=== PATIENT | female | born 1975 | race American Indian/Alaskan Native ===

== ENCOUNTER 2020-04-26 10:52 | Emergency (ER) | payer BC ==
[2020-04-26] MEDS ORDERED: MORPHINE 4 MG/1 ML INJ IV ONE (11:08)
[2020-04-26] MEDS ORDERED: ONDANSETRON 4 MG/2 ML INJ IV ONE (11:08)
[2020-04-26] MEDS ORDERED: SODIUM CHLORIDE 0.9% 1000 ML 1,000 ML IV ONE (11:08)
--- NOTE | 2020-04-26 11:13 | Emergency Department Report ---
ED Abdominal Pain HPI - General Chief Complaint: Abdominal Pain Stated Complaint: ABD PAIN/VOMITING Time Seen by Provider: 04/26/20 11:03 Source: patient Mode of arrival: Ambulatory Limitations: No Limitations - History of Present Illness Initial Comments: pt is a 45 yo female who presents to the ED with c/o LLQ abd pain that began a couple of days ago and worsened this morning while she was on her way to work. she states she has associated N/V. she states she has had approximately 3 episodes of vomiting today. she states she feels constipated, she states she did an enema this morning and was able to have a BM but still has the sensation of needing to have a BM. she denies any diarrhea, dysuria, odor to urine or dark urine, abnormal vaginal discharge, itching or burning, hematochezia, hematemesis, melana. PMHx DM, HTN, HLD, anemia. no allergies to meds. LNMP 2nd week of April 2020. she is sexually active but denies any concerns for STDs. - Related Data Previous Rx's Medication Instructions Recorded Last Taken Type Ciprofloxacin HCl [Cipro] 500 mg PO Q12H #14 tab 08/13/14 Unknown Rx HYDROcodone/APAP 10-325 [[place] 1 each PO Q4-6H PRN #20 tablet 08/13/14 Unknown Rx 10/325] Ondansetron [Zofran Odt] 4 mg SL Q6H PRN #8 tab.rapdis 08/13/14 Unknown Rx HYDROcodone/APAP 5-325 [[place] 1 each PO Q6HR PRN #10 tablet 04/26/20 Unknown Rx 5/325] Naproxen [EC-Naprosyn] 500 mg PO BID PRN #20 tablet. 04/26/20 Unknown Rx Ondansetron [Zofran Odt] 4 mg PO Q8HR PRN #7 tab.rapdis 04/26/20 Unknown Rx Tamsulosin [Flomax] 0.4 mg PO QDAY #7 cap 04/26/20 Unknown Rx Allergies Allergy/AdvReac Type Severity Reaction Status Date / Time No Known Allergies Allergy Verified 04/26/20 10:58 ED Review of Systems ROS: Stated complaint: ABD PAIN/VOMITING Other details as noted in HPI Comment: All other systems reviewed and negative ED Past Medical Hx - Past Medical History Hx Diabetes: Yes - Surgical History Additional Surgical History: IUD implant - Social History Smoking Status: Never Smoker Substance Use Type: None - Medications Home Medications: Home Medications Medication Instructions Recorded Confirmed Last Taken Type Ciprofloxacin HCl [Cipro] 500 mg PO Q12H #14 tab 08/13/14 Unknown Rx HYDROcodone/APAP 10-325 [[place] 1 each PO Q4-6H PRN #20 tablet 08/13/14 Unknown Rx 10/325] Ondansetron [Zofran Odt] 4 mg SL Q6H PRN #8 tab.rapdis 08/13/14 Unknown Rx HYDROcodone/APAP 5-325 [[place] 1 each PO Q6HR PRN #10 tablet 04/26/20 Unknown Rx 5/325] Naproxen [EC-Naprosyn] 500 mg PO BID PRN #20 tablet.dr 04/26/20 Unknown Rx Ondansetron [Zofran Odt] 4 mg PO Q8HR PRN #7 tab.rapdis 04/26/20 Unknown Rx Tamsulosin [Flomax] 0.4 mg PO QDAY #7 cap 04/26/20 Unknown Rx ED Physical Exam - General Limitations: No Limitations General appearance: alert, in no apparent distress - Head Head exam: Present: atraumatic, normocephalic - Eye Eye exam: Present: normal appearance - ENT ENT exam: Present: mucous membranes moist - Respiratory Respiratory exam: Present: normal lung sounds bilaterally. Absent: respiratory distress, wheezes, rales, rhonchi, stridor, chest wall tenderness, accessory muscle use, decreased breath sounds, prolonged expiratory - Cardiovascular Cardiovascular Exam: Present: regular rate, normal rhythm, normal heart sounds. Absent: systolic murmur, diastolic murmur, rubs, gallop - GI/Abdominal GI/Abdominal exam: Present: soft, tenderness (LLQ), normal bowel sounds. Absent: distended, guarding, rebound, rigid - Neurological Exam Neurological exam: Present: alert, oriented X3 - Psychiatric Psychiatric exam: Present: normal affect, normal mood - Skin Skin exam: Present: warm, dry, intact ED Course Vital Signs 04/26/20 04/26/20 04/26/20 10:58 12:00 12:05 Temperature 98.6 F Pulse Rate 113 H 107 H Respiratory 20 13 16 Rate Blood Pressure 141/99 148/105 Blood Pressure [Right] O2 Sat by Pulse 96 100 100 Oximetry 04/26/20 04/26/20 04/26/20 12:10 12:16 12:46 Temperature Pulse Rate 96 H 102 H 107 H Respiratory 12 14 18 Rate Blood Pressure 155/106 116/74 Blood Pressure 148/105 [Right] O2 Sat by Pulse 100 100 Oximetry 04/26/20 04/26/20 13:00 14:16 Temperature Pulse Rate 105 H 99 H Respiratory 17 21 Rate Blood Pressure 116/74 129/95 Blood Pressure [Right] O2 Sat by Pulse 100 99 Oximetry ED Medical Decision Making - Lab Data Result diagrams: 04/26/20 11:16 04/26/20 11:16 Lab Results 04/26/20 04/26/20 04/26/20 Range/Units 11:16 11:16 11:16 WBC 10.6 (4.5-11.0) K/mm3 RBC 4.99 (3.65-5.03) M/mm3 Hgb 11.1 (10.1-14.3) gm/dl Hct 35.3 (30.3-42.9) % MCV 71 L (79-97) fl MCH 22 L (28-32) pg MCHC 32 (30-34) % RDW 15.4 H (13.2-15.2) % Plt Count 230 (140-440) K/mm3 Lymph % (Auto) 13.4 (13.4-35.0) % [place] % (Auto) 7.9 H (0.0-7.3) % Eos % (Auto) 0.8 (0.0-4.3) % Baso % (Auto) 0.6 (0.0-1.8) % Lymph # (Auto) 1.4 (1.2-5.4) K/mm3 [place] # (Auto) 0.8 (0.0-0.8) K/mm3 Eos # (Auto) 0.1 (0.0-0.4) K/mm3 Baso # (Auto) 0.1 (0.0-0.1) K/mm3 Seg Neutrophils % 77.3 H (40.0-70.0) % Seg Neutrophils # 8.2 H (1.8-7.7) K/mm3 Sodium 138 (137-145) mmol/L Potassium 4.0 (3.6-5.0) mmol/L Chloride 99.5 (98-107) mmol/L Carbon Dioxide 29 (22-30) mmol/L Anion Gap 14 mmol/L BUN 10 (7-17) mg/dL Creatinine 0.8 (0.6-1.2) mg/dL Estimated GFR > 60 ml/min BUN/Creatinine Ratio 13 % Glucose 302 H (65-100) mg/dL Calcium 9.3 (8.4-10.2) mg/dL Total Bilirubin 0.60 (0.1-1.2) mg/dL AST 15 (5-40) units/L ALT 13 (7-56) units/L Alkaline Phosphatase 99 (35-129) units/L Total Protein 8.2 (6.3-8.2) g/dL Albumin 4.0 (3.9-5) g/dL Albumin/Globulin Ratio 1.0 % Lipase 37 (13-60) units/L HCG, Qual Negative (Negative) Urine Color (Yellow) Urine Turbidity (Clear) Urine pH (5.0-7.0) Ur Specific [place] (1.003-1.030) Urine Protein (Negative) mg/dL Urine Glucose (UA) (Negative) mg/dL Urine Ketones (Negative) mg/dL Urine Blood (Negative) Urine Nitrite (Negative) Urine Bilirubin (Negative) Urine Urobilinogen (<2.0) mg/dL Ur Leukocyte Esterase (Negative) Urine WBC (Auto) (0.0-6.0) /HPF Urine RBC (Auto) (0.0-6.0) /HPF U Epithel Cells (Auto) (0-13.0) /HPF Urine Bacteria (Auto) (Negative) /HPF Urine Mucus /HPF 04/26/20 Range/Units 13:35 WBC (4.5-11.0) K/mm3 RBC (3.65-5.03) M/mm3 Hgb (10.1-14.3) gm/dl Hct (30.3-42.9) % MCV (79-97) fl MCH (28-32) pg MCHC (30-34) % RDW (13.2-15.2) % Plt Count (140-440) K/mm3 Lymph % (Auto) (13.4-35.0) % [place] % (Auto) (0.0-7.3) % Eos % (Auto) (0.0-4.3) % Baso % (Auto) (0.0-1.8) % Lymph # (Auto) (1.2-5.4) K/mm3 [place] # (Auto) (0.0-0.8) K/mm3 Eos # (Auto) (0.0-0.4) K/mm3 Baso # (Auto) (0.0-0.1) K/mm3 Seg Neutrophils % (40.0-70.0) % Seg Neutrophils # (1.8-7.7) K/mm3 Sodium (137-145) mmol/L Potassium (3.6-5.0) mmol/L Chloride (98-107) mmol/L Carbon Dioxide (22-30) mmol/L Anion Gap mmol/L BUN (7-17) mg/dL Creatinine (0.6-1.2) mg/dL Estimated GFR ml/min BUN/Creatinine Ratio % Glucose (65-100) mg/dL Calcium (8.4-10.2) mg/dL Total Bilirubin (0.1-1.2) mg/dL AST (5-40) units/L ALT (7-56) units/L Alkaline Phosphatase (35-129) units/L Total Protein (6.3-8.2) g/dL Albumin (3.9-5) g/dL Albumin/Globulin Ratio % Lipase (13-60) units/L HCG, Qual (Negative) Urine Color Straw (Yellow) Urine Turbidity Slightly-cloudy (Clear) Urine pH 7.0 (5.0-7.0) Ur Specific [place] 1.041 H (1.003-1.030) Urine Protein <15 mg/dl (Negative) mg/dL Urine Glucose (UA) >=500 (Negative) mg/dL Urine Ketones Tr (Negative) mg/dL Urine Blood Sm (Negative) Urine Nitrite Neg (Negative) Urine Bilirubin Neg (Negative) Urine Urobilinogen < 2.0 (<2.0) mg/dL Ur Leukocyte Esterase Neg (Negative) Urine WBC (Auto) 1.0 (0.0-6.0) /HPF Urine RBC (Auto) 3.0 (0.0-6.0) /HPF U Epithel Cells (Auto) 11.0 (0-13.0) /HPF Urine Bacteria (Auto) 2+ (Negative) /HPF Urine Mucus Few /HPF Vital Signs 04/26/20 04/26/20 04/26/20 10:58 12:00 12:05 Temperature 98.6 F Pulse Rate 113 H 107 H Respiratory 20 13 16 Rate Blood Pressure 141/99 148/105 Blood Pressure [Right] O2 Sat by Pulse 96 100 100 Oximetry 04/26/20 04/26/20 04/26/20 12:10 12:16 12:46 Temperature Pulse Rate 96 H 102 H 107 H Respiratory 12 14 18 Rate Blood Pressure 155/106 116/74 Blood Pressure 148/105 [Right] O2 Sat by Pulse 100 100 Oximetry 04/26/20 04/26/20 13:00 14:16 Temperature Pulse Rate 105 H 99 H Respiratory 17 21 Rate Blood Pressure 116/74 129/95 Blood Pressure [Right] O2 Sat by Pulse 100 99 Oximetry - Radiology Data Radiology results: report reviewed Ordering Physician: JEROME MEDEROS Date of Service: 04/26/20 Procedure(s): CT abdomen pelvis w con Accession Number(s): [id number] cc: JEROME MEDEROS CT ABDOMEN AND PELVIS WITH CONTRAST HISTORY: LLQ abd pain, n/v, constipation COMPARISON: None. TECHNIQUE: Axial CT images were obtained through the abdomen and pelvis after 100 cc of IV contrast. Sagittal and coronal reformatted images. All CT scans at this location are performed using CT dose reduction for ALARA by means of automated exposure control. FINDINGS: CT ABDOMEN: Lung Bases: Clear. Liver: The liver is at the upper limits of normal size with mild steatosis. No focal lesion. Biliary: No significant abnormality. Spleen: No significant abnormality. Unenlarged. Pancreas: No significant abnormality. Adrenals: No significant abnormality. Kidneys: A 3.5 mm calculus is identified at the left UVJ. There is minimal left hydroureter. Minimal left perinephric stranding. No right ureteral stones. No obvious additional renal stones on CT with contrast. No focal renal lesion. Lymphatics: No lymphadenopathy. Vasculature: No significant abnormality. Bowel/Peritoneum: No significant abnormality. No free air. No free fluid. Normal appendix. CT PELVIS: : No significant abnormality. Osseous Structures: No significant abnormality. Additional Findings: None IMPRESSION: 3.5 mm calculus at the left UVJ with minimal left hydroureter and minimal left perinephric stranding. Mild hepatic steatosis. Signer Name: Shaheen Sanchez Jr, MD Signed: 04/26/2020 1:06 PM Workstation Name: [id number] Transcribed By: NAILA Dictated By: SHAHEEN SANCHEZ JR, MD Electronically Authenticated By: SHAHEEN SANCHEZ JR, MD Signed Date/Time: 04/26/20 1306 DD/ 1303 TD/TT: - Medical Decision Making pt is a 45 yo female who presents to the ED with c/o LLQ abd pain that began a couple of days ago and worsened this morning while she was on her way to work. she states she has associated N/V. she states she has had approximately 3 episodes of vomiting today. she states she feels constipated, she states she did an enema this morning and was able to have a BM but still has the sensation of needing to have a BM. she denies any diarrhea, dysuria, odor to urine or dark urine, abnormal vaginal discharge, itching or burning, hematochezia, hematemesis, melana. PMHx DM, HTN, HLD, anemia. no allergies to meds. LNMP 2nd week of April 2020. she is sexually active but denies any concerns for STDs. Initial vitals with tachycardia which improved upon repeat. On exam: Left lower quadrant tenderness palpation, no guarding, no rebound, no rigidity, normal bowel sounds, no peritoneal signs. Labs with elevated blood glucose of 302, patient has chronic diabetes but states that she has not taken her medications in a couple days, she states that she does have her medications at home, she states that she was recently started on a new diabetes medication by her primary care doctor, discussed lifestyle modifications and the importance of primary care follow-up. UA without evidence of significant UTI. CT abdomen pelvis with IV contrast 3.5 mm calculus at the left UVJ with minimal left hydroureter and minimal left perinephric stranding. Mild hepatic steatosis. Patient given medications while in the emergency department as she did not drive and symptoms significantly improved and she was feeling better ready to go home. Discussed all results with patient. Patient be referred to her primary care doctor and a urologist. Patient given prescription for naproxen, [place], flomax, zofran. advised pt please take medication as prescribed. increase your water intake. eat a low carbohydrate/low sugar diet. follow up with a urologist. follow up with a primary care doctor regarding the elevation in your blood sugar. return to the emergency room for any new or worsening symptoms. - Differential Diagnosis Diverticulitis, colitis, UTI, pyelonephritis, nephrolithiasis, constipation Critical care attestation.: If time is entered above; I have spent that time in minutes in the direct care of this critically ill patient, excluding procedure time. ED Disposition Clinical Impression: Nephrolithiasis, Hyperglycemia Nausea & vomiting Qualifiers: Vomiting type: associated with bulimia nervosa Qualified Code(s): F50.2 - Bulimia nervosa Abdominal pain Qualifiers: Abdominal location: left lower quadrant Qualified Code(s): R10.32 - Left lower quadrant pain Disposition: TO HOME OR SELFCARE Is pt being admited?: No Does the pt Need Aspirin: No Condition: Stable Instructions: Kidney Stones, Abdominal Pain (ED) Additional Instructions: please take medication as prescribed. increase your water intake. eat a low carbohydrate/low sugar diet. follow up with a urologist. follow up with a primar y care doctor regarding the elevation in your blood sugar. return to the emergency room for any new or worsening symptoms. Prescriptions: Naproxen [EC-Naprosyn] 500 mg PO BID PRN #20 tablet.dr PRN Reason: Pain, Moderate (4-6) Tamsulosin [Flomax] 0.4 mg PO QDAY #7 cap HYDROcodone/APAP 5-325 [[place] 5/325] 1 each PO Q6HR PRN #10 tablet PRN Reason: Pain , Severe (7-10) Ondansetron [Zofran Odt] 4 mg PO Q8HR PRN #7 tab.rapdis PRN Reason: nausea/vomiting Referrals: PRIMARY CARE, [Primary Care Provider] - 2-3 Days JAKE TEJEDA MD [Staff Physician] - 2-3 Days Time of Disposition: 14:06 Print Language: IRANIAN
[2020-04-26 11:29] LABS: Basophils # (Auto) 0.1 K/mm3 (0.0-0.1); Basophils % (Auto) 0.6 % (0.0-1.8); Eosinophils # (Auto) 0.1 K/mm3 (0.0-0.4); Eosinophils % (Auto) 0.8 % (0.0-4.3); Hematocrit 35.3 % (30.3-42.9); Hemoglobin 11.1 gm/dl (10.1-14.3); Lymphocytes # (Auto) 1.4 K/mm3 (1.2-5.4); Lymphocytes % (Auto) 13.4 % (13.4-35.0); Mean Corpuscular HGB Conc 32 % (30-34); Mean Corpuscular Volume 71 fl (79-97); Monocytes # (Auto) 0.8 K/mm3 (0.0-0.8); Monocytes % (Auto) 7.9 % (0.0-7.3); Platelet Count 230 K/mm3 (140-440); Red Blood Count 4.99 M/mm3 (3.65-5.03); Red Cell Distribution Width 15.4 % (13.2-15.2)
[2020-04-26 11:55] LABS: Alanine Aminotransferase 13 units/L (7-56); BUN/Creatinine Ratio 13; Blood Urea Nitrogen 10 mg/dL (7-17); Calcium 9.3 mg/dL (8.4-10.2); Hemolysis Index 3
--- NOTE | 2020-04-26 13:10 | Cat Scan Report ---
CT ABDOMEN AND PELVIS WITH CONTRAST HISTORY: LLQ abd pain, n/v, constipation COMPARISON: None. TECHNIQUE: Axial CT images were obtained through the abdomen and pelvis after 100 cc of IV contrast. Sagittal and coronal reformatted images. All CT scans at this location are performed using CT dose re duction for [place] by means of automated exposure control. FINDINGS: CT ABDOMEN: Lung Bases: Clear. Liver: The liver is at the upper limits of normal size with mild steatosis. No focal lesion. Biliary: No significant abnormality. Spleen: No significant abnormality. Unenlarged. Pancreas: No significant abnormality. Adrenals: No significant abnormality. Kidneys: A 3.5 mm calculus is identified at the left UVJ. There is minimal left hydroureter. Minimal left perinephric stranding. No right ureteral stones. No obvious additional renal stones on CT with c ontrast. No focal renal lesion. Lymphatics: No lymphadenopathy. Vasculature: No significant abnormality. Bowel/Peritoneum: No significant abnormality. No free air. No free fluid. Normal appendix. CT PELVIS: : No significant abnormality. Osseous Structures: No significant abnormality. Additional Findings: None IMPRESSION: 3.5 mm calculus at the left UVJ with minimal left hydroureter and minimal left perinephric stranding. Mild hepatic steatosis. Signer Name: Shaheen Sanchez Jr, MD Signed: 04/26/2020 1:06 PM Workstation Name: [id number]
[2020-04-26] MEDS ORDERED: HYDROmorphone 1 MG/1 ML INJ IV ONE (13:35)
[2020-04-26] MEDS ORDERED: KETOROLAC 30 MG/1 ML INJ IV ONE (13:35)
[2020-04-26 13:56] LABS: Bacteria,Urine 2+ /HPF (Negative); Bilirubin,Urine NEG (Negative); Blood,Urine SM (Negative); Color,Urine Straw (Yellow); Mucus,Urine FEW /HPF; Protein,Urine <15 mg/dL mg/dL (Negative); Urobilinogen,Urine < 2.0 mg/dL (<2.0)
[2020-04-26 14:27] VITALS: BP 129/95
== END 2020-04-26 14:33 | disposition home or self-care (01) ==
LOC: ED 10:52
DX: N20.0 Calculus of kidney (principal); E11.65 Type 2 diabetes mellitus with hyperglycemia; R10.32 Left lower quadrant pain; R11.2 Nausea with vomiting, unspecified; Z98.890 Other specified postprocedural states; Z79.2 Long term (current) use of antibiotics; Z79.899 Other long term (current) drug therapy
CPT/HCPCS: 36415; 74177; 80053; 81001; 83690; 84703; 85025; 96361; 96374; 96375; 99284; J1170; J1885; J2270; J2405; J7030; Q9967